=== PATIENT | male | born 1995 | race Caucasian/White ===

== ENCOUNTER 2021-09-08 10:09 | Observation (INO) ==
[2021-09-08] MEDS ORDERED: NS 0.9% 1000 ml BAG 1,000 ML IV ONE ×2 (10:26→11:51)
[2021-09-08 10:51] LABS: ABS Lymphocytes 0.9 10^3/ul (1.0-4.8); ABS Monocytes 0.3 10^3/ul (0-0.8); ABS Neutrophils 6.4 10^3/ul (1.5-7.7); Hematocrit 45 % (42-52); Hemoglobin 15.4 g/dL (14.0-18.0); Lymphocyte % 11.8 %; Mean Corpuscular HGB Conc 34 g/dL (31-36); Mean Corpuscular Hemoglobin 34 pg (27-31); Mean Corpuscular Volume 98 fL (80-94); Mean Platelet Volume 7.8 fL (7.4-10.4); Nucleated Red Blood Cells % 0.1; Platelet Count 219 10^3/uL (150-450); Red Blood Count 4.58 10^6 /uL (4.18-5.48); Red Cell Distribution Width 14 % (10-15); White Blood Count 7.7 10^3/uL (3.5-10.8)
[2021-09-08] MEDS ORDERED: Ondansetron 4 mg VIAL 2 MG/ML 2 ml VIAL IV ONE ×2 (10:59→11:51)
[2021-09-08 11:34] LABS: Albumin 4.6 g/dL (3.2-5.2); Albumin/Globulin Ratio 2.3 (1-3); C Reactive Protein 4.97 mg/L (<8.01); Calcium 9.8 mg/dL (8.6-10.3); Magnesium 1.8 mg/dL (1.9-2.7); Potassium 4.2 mmol/L (3.5-5.0); Total Bilirubin 0.7 mg/dL (0.2-1.0); Total Protein 6.6 g/dL (6.4-8.9); eGFR CKD-EPI 122.7 (>60)
[2021-09-08] MEDS ORDERED: Iohexol 300 (CONTRAST) 10 ML SDV IV ONE (14:16)
[2021-09-08 14:48] LABS: Erythrocyte Sed Rate 1 mm/Hr (0-14)
[2021-09-08] MEDS ORDERED: Piperacillin/Tazobac ADVAN 3.375 GM in NS 0.9% 100 ml BAG 100 ML IV ONE (14:51)
[2021-09-08] MEDS ORDERED: Piperacillin/Tazobac 3.375 GM BAG ONE (15:06)
[2021-09-08 15:23] LABS: Urine Appearance Clear; Urine Bilirubin Negative (Negative); Urine Blood Negative (Negative); Urine Color Yellow; Urine Glucose Negative (Negative); Urine Ketones 1+ (Negative); Urine Nitrite Negative (Negative); Urine Protein Negative (Negative); Urine Specific Gravity 1.038 (1.002-1.030); Urine Urobilinogen Negative (Negative)
[2021-09-08] MEDS ORDERED: fentaNYL 100 mcg/2 ml 50 MCG/ML VIAL IV PRN ×2 (16:50→21:14)
[2021-09-08] MEDS ORDERED: Naloxone 0.4 mg VIAL 0.4 mg/ml 1 ml VIAL IV PRN ×2 (16:50→21:14)
[2021-09-08] MEDS ORDERED: DiMENhydriNATE IV 50 mg/ml 1 ml VIAL IV PUSH PRN ×2 (16:50→21:14)
[2021-09-08] MEDS ORDERED: Lactated Ringers 1000 ml BAG 1,000 ML IV SCH (17:00)
[2021-09-08] MEDS ORDERED: Bupivacaine 0.25% EPI 200,000 30 ML SDV ONE (19:24)
[2021-09-08] MEDS ORDERED: Propofol 10 MG/ML 20 ML BTL ONE (19:26)
[2021-09-08] MEDS ORDERED: Rocuronium 50 mg VIAL 10 mg/ml 5 ml VIAL (50 mg) ONE ×2 (19:26→20:47)
[2021-09-08] MEDS ORDERED: Lidocaine 2% PF 5 ML VIAL ONE (19:26)
[2021-09-08] MEDS ORDERED: Succinylcholine 200 mg VIAL 20 mg/ml 10 ml VIAL (200 mg) ONE (19:26)
[2021-09-08] MEDS ORDERED: Midazolam 2 mg/2 ml VIAL 1 mg/ml 2 ml VIAL (2 mg) ONE (19:27)
[2021-09-08] MEDS ORDERED: fentaNYL 100 mcg/2 ml 50 MCG/ML VIAL ONE (19:27)
[2021-09-08] MEDS ORDERED: Ondansetron 4 mg VIAL 2 MG/ML 2 ml VIAL ONE (20:05)
[2021-09-08] MEDS ORDERED: Dexamethasone IV 4 MG/ML VIAL 1 ml VIAL ONE (20:05)
[2021-09-08] MEDS ORDERED: oxyCODONE/Acetamin 5/325 mg TAB PO PRN ×2 (21:14→23:00)
[2021-09-08] MEDS ORDERED: DiMENhydriNATE IV 50 mg/ml 1 ml VIAL ONE (21:54)
[2021-09-08] MEDS: NS 0.9% 1,000 ML IV SCH (23:46)
[2021-09-08] MEDS: ZOSYN 3.375 GM Q8H per EXTENDED INFUSION IV SCH (23:59)
[2021-09-09] MEDS ORDERED: Flu vaccine *QUAD* 2021-22* 0.5 ML SYRINGE IM ONE (09:00)
[2021-09-09] MEDS: ZOSYN 3.375 GM Q8H per EXTENDED INFUSION IV SCH (09:30)
[2021-09-09] MEDS: NS 0.9% 1,000 ML IV SCH (09:40)
[2021-09-09 13:02] VITALS: BP 110/68
== END 2021-09-09 13:20 | disposition home or self-care (01) ==
LOC: ED 10:09 → MEDTELE 23:00 → INTOOBSV 23:00 → MEDTELE 09-09 02:45
PROVIDERS: ADMIT Surgery; ATTEND Surgery